=== PATIENT | male | born 1970 ===

== ENCOUNTER 2018-05-23 10:39 | Outpatient (CLI) | payer OTHER ==
[~2018-05-23] VITALS: Ht 180.3 cm; Wt 86.2 kg
== END 2018-05-23 11:00 | disposition home or self-care (01) ==
LOC: OFIC 805 10:39
DX: M26.09 Other specified anomalies of jaw size (principal); H90.41 Sensorineural hearing loss, unilateral, right ear, with unrestricted hearing on the contralateral side

== ENCOUNTER 2019-09-06 13:06 | Outpatient (CLI) | payer OTHER | END 2019-09-06 13:18 | disposition home or self-care (01) | LOC: SONOGRAMA 13:06 → MAMO-SONO 13:15 → SONOGRAMA 13:18 | DX: E03.8 Other specified hypothyroidism (principal) ==